=== PATIENT | male | born 1975 | race African-American/Black ===

== ENCOUNTER 2017-04-26 07:08 | Emergency (ER) | payer OTHER ==
[~2017-04-26] VITALS: Ht 180.3 cm; Wt 140.0 kg
[~2017-04-26 07:08] MED LIST: SULF1TAB47 PO
[2017-04-26 07:12] VITALS: BP 142/78; PULSE 95; RESP 18; TEMP 97.6; O2SAT 97
[2017-04-26 07:21] VITALS: BP 138/80; PULSE 89; RESP 22; O2SAT 97
[2017-04-26] MEDS ORDERED: ASPIRIN 81 MG CHEW TAB PO ONE (07:30)
[2017-04-26] MEDS ORDERED: SODIUM CHLORIDE 0.9% FLUSH 10 ML FLUSH IVF PRN (07:30)
[2017-04-26 07:32] VITALS: O2SAT 97
--- NOTE | 2017-04-26 07:42 | PD ---
HPI . Chest pain Chief Complaint: Chest Pain Time Seen by Provider: 07:27 Travel History International Travel<30 days: No Contact w/Intl Traveler<30days: No Traveled to known affect area: No History of Present Illness HPI This patient presents with chief complaint of chest pain. Onset was a couple of days ago. He describes a right sided chest discomfort which is exacerbated by coughing and deep breathing. His pain is worse today. He rates it 7/10. Associated symptoms include shortness of breath, wheezing and nasal congestion. Symptoms have been unrelieved by Zyrtec. Patient denies any previous history of bronchospasm/lung disease. He states that he is a non-smoker. [facility] Past Medical History Medical History: Denies Significant Hx Diminished Hearing: No Past Surgical History Surgical History: No Previous Surgery Social History Alcohol Use: No Tobacco Use: No Substance Use: No Allergies-Medications (Allergen,Severity, Reaction): Coded Allergies: erythromycin base (Unverified Allergy, Severe, SEVERE Hives, 09/30/16) penicillin G (Unverified Allergy, Severe, 09/30/16) Reported Meds & Prescriptions Reported Meds & Active Scripts Active No Active Prescriptions or Reported Medications Review of Systems Except as stated in HPI: all other systems reviewed are Neg General / Constitutional: No: Fever, Chills HENT: Positive: Rhinorrhea, Congestion Cardiovascular: Positive: Chest Pain or Discomfort Respiratory: Positive: Cough, Shortness of Breath, Wheezing Physical Exam Narrative GENERAL: Awake and alert and in no acute distress. He sounds like he has nasal congestion. SKIN: warm/dry. HEAD: Normocephalic. Atraumatic. EYES: Pupils equal and round. No scleral icterus. No injection or drainage. ENT: No nasal bleeding. Edema of the nasal turbinates with clear rhinorrhea. Mucous membranes pink and moist. NECK: Trachea midline. Full range of motion without pain. No cervical lymphadenopathy. CARDIOVASCULAR: Regular rate and rhythm. Heart sounds are normal. RESPIRATORY: No accessory muscle use. Expiratory wheezing heard in the mid and upper lung leavitt posteriorly. Breath sounds equal bilaterally. MUSCULOSKELETAL: No obvious deformities. NEUROLOGICAL: Awake and alert. No obvious cranial nerve deficits. Motor grossly within normal limits. Normal speech. PSYCHIATRIC: Appropriate mood and affect; insight and judgment normal. Data Data Last Documented VS Vital Signs Date Time Temp Pulse Resp B/P (MAP) Pulse Ox O2 Delivery O2 Flow Rate FiO2 3/11/18 07:52 98 21 04/26/17 07:32 Room Air 04/26/17 07:21 89 22 04/26/17 07:12 97.6 Orders Orders Basic Metabolic Panel (Bmp) (04/26/17 07:28) Complete Blood Count With Diff (04/26/17 07:28) Magnesium (Mg) (04/26/17 07:28) Troponin I (04/26/17 07:28) Ecg Monitoring (04/26/17 07:28) Iv Access Insert/Monitor (04/26/17 07:28) Oximetry (04/26/17 07:28) Aspirin Chew (Aspirin Chew) (04/26/17 07:30) Sodium Chloride 0.9% Flush (Ns Flush) (04/26/17 07:30) Chest, Pa & Lat (04/26/17 07:28) Oxymetazoline 0.05% Inder King (Afrin 0.0 (04/26/17 07:45) Diphenhydramine (Benadryl) (04/26/17 07:45) Methylprednisolone So Succ Inj (Solumedr (04/26/17 07:45) Albuterol-Ipratropium Neb (Duoneb Neb) (04/26/17 07:45) Labs Laboratory Tests Test 04/26/17 07:25 White Blood Count 6.5 TH/MM3 Red Blood Count 4.69 MIL/MM3 Hemoglobin 15.0 GM/DL Hematocrit 43.0 % Mean Corpuscular Volume 91.7 FL Mean Corpuscular Hemoglobin 32.0 PG Mean Corpuscular Hemoglobin Concent 34.9 % Red Cell Distribution Width 13.2 % Platelet Count 273 TH/MM3 Mean Platelet Volume 6.9 FL Neutrophils (%) (Auto) 50.9 % Lymphocytes (%) (Auto) 28.7 % Monocytes (%) (Auto) 8.7 % Eosinophils (%) (Auto) 11.1 % Basophils (%) (Auto) 0.6 % Neutrophils # (Auto) 3.3 TH/MM3 Lymphocytes # (Auto) 1.9 TH/MM3 Monocytes # (Auto) 0.6 TH/MM3 Eosinophils # (Auto) 0.7 TH/MM3 Basophils # (Auto) 0.0 TH/MM3 CBC Comment DIFF FINAL Differential Comment Blood Urea Nitrogen 16 MG/DL Creatinine 1.06 MG/DL Random Glucose 107 MG/DL Calcium Level 8.6 MG/DL Magnesium Level 2.3 MG/DL Sodium Level 140 MEQ/L Potassium Level 3.9 MEQ/L Chloride Level 108 MEQ/L Carbon Dioxide Level 25.2 MEQ/L Anion Gap 7 MEQ/L Estimat Glomerular Filtration Rate 93 ML/MIN Troponin I LESS THAN 0.02 NG/ML MDM Medical Decision Making Medical Screen Exam Complete: Yes Emergency Medical Condition: Yes Medical Record Reviewed: Yes (All previous visits here have been for acute minor problems) Interpretation(s) EKG shows a normal sinus rhythm. He has inferior Q waves. No acute ST segment elevation or depression. Differential Diagnosis Differential diagnosis of chest pain includes but is not limited to musculoskeletal pain, pulmonary embolism, acute coronary syndrome, pneumonia, pleurisy Narrative Course This patient presents with a 2 day history of right-sided chest pain which is exacerbated by breathing and coughing. He has associated nasal congestion and wheezing. The most likely etiology of his symptoms is allergic. He has had an EKG which is not concerning. Routine cardiac labs are pending as is a chest x-ray. Aspirin has been given. In the meantime, he will be treated with Afrin and oral Benadryl. He will also be given Solu-Medrol and duo nebs. He will be reassessed following his treatment and the completion of his laboratory workup. CBC & BMP Diagram 04/26/17 07:25 Calcium Level 8.6, Magnesium Level 2.3 trop < 0.02 Last Impressions Chest X-Ray 04/26/17 0728 Signed Impressions: Service Date/Time: Wednesday, April 26, 2017 07:53 - CONCLUSION: No acute disease. Andrew Curtis MD The chest x-ray was independently reviewed by me. 9:15 AM The patient is resting comfortably. He states that he is feeling better. His lungs are now clear with improved air movement and no wheezing. He will be discharged to home with prescriptions for an antihistamine and instructions to continue using the Afrin for the next couple of days. He will also be given an inhaler and a steroid taper. Diagnosis Primary Impression: Chest pain Qualified Codes: R07.9 - Chest pain, unspecified Additional Impressions: Nasal congestion Bronchospasm Patient Instructions: Allergic Rhinitis (DC), Bronchospasm (DC), General Instructions Additional Instructions: Use Afrin nasal spray twice a day for the next 3 days as needed for nasal congestion. Stopped using it after 3 days. Scripts Fexofenadine (Janis Allergy) 180 Mg Tab 180 MG PO DAILY for Allergy Management, #30 TAB 0 Refills Prov: Melanie Hall MD 04/26/17 Albuterol 18 GM Inh (Ventolin Hfa 18 GM Inh) 90 Mcg/Act Aer 2 PUFF INH Q4-6H Y for SHORTNESS OF BREATH, #1 INHALER 0 Refills Prov: Melanie Hall MD 04/26/17 Prednisone (Prednisone) 50 Mg Tab 50 MG PO DAILY for 5 Days, #5 TAB 0 Refills Prov: Melanie Hall MD 04/26/17 Disposition: 01 DISCHARGE HOME Condition: Stable Melanie Hall MD Apr 26, 2017 07:42
[2017-04-26] MEDS ORDERED: OXYMETAZOLINE HCL 0.05% 15 ML NASAL SPRAY NASAL ONE (07:45)
[2017-04-26] MEDS ORDERED: diphenhydrAMINE HCL 50 MG CAP PO ONE (07:45)
[2017-04-26] MEDS ORDERED: methylPREDNISolone SOD SUCC 125 MG/2 ML VIAL IV PUSH ONE (07:45)
[2017-04-26 07:52] VITALS: O2SAT 98
[2017-04-26 07:52] LABS: AUTOMATED NEUTROPHIL # 3.3 TH/MM3 (1.8-7.7); BASOPHIL % 0.6 % (0.0-2.0); EOSINOPHIL # 0.7 TH/MM3 (0-0.4); EOSINOPHIL % 11.1 % (0.0-4.0); LYMPH % 28.7 % (9.0-44.0); LYMPHOCYTE # 1.9 TH/MM3 (1.0-4.8); MEAN CELL VOLUME 91.7 FL (80.0-100.0); MEAN CORPUSCULAR HGB CONC 34.9 % (32.0-36.0); MEAN PLATELET VOLUME 6.9 FL (7.0-11.0); MONO % 8.7 % (0.0-8.0); MONOCYTE # 0.6 TH/MM3 (0-0.9); NEUT % 50.9 % (16.0-70.0); PLATELET COUNT 273 TH/MM3 (150-450); RED BLOOD COUNT 4.69 MIL/MM3 (4.50-5.90); RED CELL DISTRIBUTION WIDTH 13.2 % (11.6-17.2); WHITE BLOOD COUNT 6.5 TH/MM3 (4.0-11.0)
[2017-04-26] MEDS: RESP: ALBUTEROL 2.5 MG/IPRATROPIUM 0.5 MG NEB (SCH) INH (08:01)
[2017-04-26 08:11] LABS: TROPONIN I LESS THAN 0.02 NG/ML (0.02-0.05)
--- NOTE | 2017-04-26 08:11 | RADRPT ---
EXAM DATE/TIME: 04/26/2017 07:53 [facility] COMPARISON: No previous studies available for comparison. INDICATIONS : Right side chest pain. Cough and congestion. MEDICAL HISTORY : None. SURGICAL HISTORY : None. ENCOUNTER: Initial ACUITY: 2 days PAIN SCORE: 6/10 LOCATION: Right chest FINDINGS: PA and lateral views of the chest demonstrate the lungs to be symmetrically aerated without evidence of mass, infiltrate or effusion. The cardiomediastinal contours are unremarkable. Osseous structure s are intact. CONCLUSION: No acute disease. Andrew Curtis MD on April 26, 2017 at 8:09 Board Certified Radiologist. This report was verified electronically.
[2017-04-26 08:43] LABS: BICARBONATE 25.2 MEQ/L (21.0-32.0); BLOOD UREA NITROGEN 16 MG/DL (7-18); CALCIUM 8.6 MG/DL (8.5-10.1); CHLORIDE 108 MEQ/L (98-107); CREATININE 1.06 MG/DL (0.60-1.30); GLOMERULAR FILTRATION RATE 93 ML/MIN (>89); GLUCOSE,RANDOM 107 MG/DL (74-106); MAGNESIUM 2.3 MG/DL (1.5-2.5); SODIUM (NA) 140 MEQ/L (136-145)
[2017-04-26] MEDS ORDERED: PRED50 PO (09:19)
[2017-04-26] MEDS ORDERED: VENTAER INH (09:19)
[2017-04-26] MEDS ORDERED: FEXO15TA PO (09:19)
--- NOTE | 2017-04-27 18:10 | EKG ---
Date Performed: 04/26/2017 Time Performed: 07:20:34 PTAGE: 42 years EKG: Sinus rhythm INFERIOR MYOCARDIAL INFARCTION ABNORMAL ECG INTERPRETATION BASED ON A DEFAULT AGE OF 40 YEARS NO PREVIOUS TRACING DOCTOR: Manuela Haro Interpretating Date/Time 04/27/2017 18:09:52
== END 2017-04-26 09:41 | disposition home or self-care (01) ==
LOC: NEPC 07:08
DX: R07.89 Other chest pain (principal); R09.81 Nasal congestion; R06.02 Shortness of breath; R94.31 Abnormal electrocardiogram [ECG] [EKG]; J98.01 Acute bronchospasm
CPT/HCPCS: 71046; 80048; 83735; 84484; 85025; 93005; 94640; 94664; 96374; 99284; J2930; Q0163